=== PATIENT | male | born 1960 | race Caucasian/White ===

== ENCOUNTER 2018-09-26 18:26 | Observation (INO) ==
[2018-09-26] MEDS ORDERED: 0.9 % Sodium Chloride 1,000 ML IVC ONE (18:44)
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
[2018-09-26 19:13] LABS: Basophils # 0.1 K/mcL (0.0-0.2); Basophils % 0.7 %; Eosinophils # 0.4 K/mcL (0.0-0.6); Eosinophils % 5.5 %; Hematocrit 44.1 % (37.5-50.1); Hemoglobin 15.2 g/dL (12.9-16.9); Immature Granulocytes % 0.3 % (0-4); Lymphocytes # 2.2 K/mcL (0.6-4.6); Lymphocytes % 30.7 %; Mean Corpuscular HGB Conc 34.5 g/dL (31.6-35.5); Mean Corpuscular Hemoglobin 30.3 pg (28.0-33.3); Mean Corpuscular Volume 87.8 fL (83.0-100.0); Mean Platelet Volume 9.4 fL (9.4-12.4); Monocytes # 0.7 K/mcL (0.0-1.3); Monocytes % 9.8 %; Neutrophils # 3.9 K/mcL (1.6-8.9); Platelet Count 245 K/mcL (140-400); Red Blood Count 5.02 M/mcL (4.19-5.50); Red Cell Distribution Width 13.1 % (11.5-14.5)
[2018-09-26 19:34] LABS: BUN/Creatinine Ratio 21 (6-26); Blood Urea Nitrogen 19 mg/dL (6-20); Calcium 9.3 mg/dL (8.6-10.3); Carbon Dioxide 24 mEq/L (23-29); Chloride 107 mEq/L (98-107); Glucose 87 mg/dL (70-105); Osmolality,Calculated 292 (280-300); Potassium 3.9 mEq/L (3.5-5.1); Sodium 140 mEq/L (136-145); Troponin I < 0.03 ng/mL (< 0.04); eGFR For Non-African Americans > 60 (> 60)
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
[2018-09-26] MEDS ORDERED: Aspirin 325 MG TABLET PO ONE (19:40)
[2018-09-26 20:43] LABS: Bilirubin,Urine Negative (Negative); Blood,Urine Negative (Negative); Clarity,Urine Clear (Clear); Color,Urine Yellow (Yellow); Glucose,Urine (UA) Normal (Normal); Ketones,Urine Negative (Negative); Leukocyte Esterase,Urine Negative (Negative); Nitrite,Urine Negative (Negative); PH,Urine 6.5 pH Units (5.0-8.0); Protein,Urine Negative (Neg-Trace); Specific Gravity,Urine < 1.005 (1.010-1.025); Urobilinogen,Urine Normal (Normal)
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
[2018-09-27] MEDS: *HR* Heparin 5,000 UNIT/ML VIAL SQ SCH ×3 (05:03→21:36)
[2018-09-27 07:36] LABS: Prothrombin Time 11.4 Seconds (9.4-12.1)
[2018-09-27 07:49] LABS: Troponin I < 0.03 ng/mL (< 0.04)
[2018-09-27 07:54] LABS: Alanine Aminotransferase 29 Units/L (7-52); Albumin 3.8 g/dL (3.5-5.7); Albumin/Globulin Ratio 1.6 (1.1-2.2); Alkaline Phosphatase 51 Units/L (34-104); Aspartate Amino Transferase 19 Units/L (13-39); BUN/Creatinine Ratio 20 (6-26); Bilirubin,Total 0.8 mg/dL (0.3-1.0); Blood Urea Nitrogen 16 mg/dL (6-20); Calcium 8.9 mg/dL (8.6-10.3); Carbon Dioxide 24 mEq/L (23-29); Chloride 109 mEq/L (98-107); Chol/HDL Ratio 5.5 (0-4.9); Cholesterol 183 mg/dL (< 200); Globulin 2.4 g/dL (2.4-3.5); Glucose 87 mg/dL (70-105); HDL Cholesterol 33 mg/dL (40-59); LDL Cholesterol,Calculated 127 mg/dL (0-99); Osmolality,Calculated 289 (280-300); Potassium 3.9 mEq/L (3.5-5.1); Sodium 139 mEq/L (136-145); Total Protein 6.2 g/dL (6.4-8.9); Triglycerides 117 mg/dL (< 150); eGFR For Non-African Americans > 60 (> 60)
[2018-09-27 08:36] LABS: Estimated Average Glucose 111 mg/dl; Hemoglobin A1C 5.5 %
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
--- NOTE | 2018-09-27 13:55 | EEG/EMG/Oth Biometrics Report ---
EEG Procedure Report Date of procedure: 09/27/18 EEG Procedure: Routine EEG Procedure Note: This EEG was acquired with standard international 10-20 system with EKG recording. The background EEG activity was characterized by the presence of posterior dominant alpha rhythm with the best frequency up to 11 Hz. The background activity was reactive to eye openings. Sleep stages were characterized by the presence of background fragmentation, vertex waves, K complexes, and sleep spindles. There are no electrographic seizures identified during this tracing. There are no epileptiform discharges and focal slowing noted during this recording. Photic stimulation and hyperventilation produced no abnormalities. Hyperventilation efforts appeared adequate due to development of diffuse background slow during and immediately after HV challenge. EKG tracing showed no significant cardiac dysrhythmia. Impression: This is essentially a normal awake and asleep EEG. Clinical Correlation: Normal EEGs, however, do not exclude epilepsy. Clinical correlation is advised.
[2018-09-28] MEDS: *HR* Heparin 5,000 UNIT/ML VIAL SQ SCH ×3 (05:19→21:26)
[2018-09-28 07:14] LABS: BUN/Creatinine Ratio 21 (6-26); Blood Urea Nitrogen 17 mg/dL (6-20); Calcium 9.2 mg/dL (8.6-10.3); Carbon Dioxide 21 mEq/L (23-29); Chloride 109 mEq/L (98-107); Glucose 89 mg/dL (70-105); Osmolality,Calculated 287 (280-300); Potassium 4.1 mEq/L (3.5-5.1); Sodium 138 mEq/L (136-145); eGFR For Non-African Americans > 60 (> 60)
--- NOTE | 2018-09-28 09:47 | Cardiology Progress Note ---
<James Gaytan - Last Filed: 09/28/18 11:09> Date of Encounter: 09/28/18 Time of Encounter: 09:00 Assessment and Plan (1) Syncope Current Visit: Yes Status: Acute -Syncopal episode while driving followed by disorientation and LE weakness -Recurring episdoes of L temporal numbness, dizziness, and bilat LE "rubber" feeling that occur with driving but do not progress to syncope -No murmurs on exam consistent with valvular disease -No arrhythmias, pauses, heart block noted on tele so far -No documented episodes of bradycardia or hypotension since arrival -Troponin x2 neg -CT head neg -MRI brain without acute abnormality -EEG wnl -Prelim carotid doppler wnl -No further symptoms today -TTE 09/27/18 EF 60-65%, mild LV diastolic dysfunction, mild tr, no evidence pfo or ph. No evidence of significant -Neuro on board to evaluate syncope for possible neuro origin -Will get exercise nuclear stress tomorrow Qualifiers: Syncope type: unspecified Qualified Code(s): R55 - Syncope and collapse Discussion w patient/family: The assessment and plan as outlined above was discussed with the patient and/or family members who expressed understanding and agreement. All questions were answered. Thank you for involving us in the care of your patient. Please call with any questions. Subjective Principal diagnosis: Syncope Interval history: No acute events overnight. No arrhythmia's noted on tele overnight. No further episodes of dizziness/lightheadedness or syncope. Had occasional dyspnea yesterday but denies diplopia, blurry vision, chest pain, back pain, diaphoresis. Objective Vital Signs, Last 4 Hours Temp Pulse Resp BP Pulse Ox 09/28/18 08:22 97.9 F 60 17 141/90 97 General: Conversant, No Apparent Distress HEENT: Atraumatic, Normocephaly Neck: No JVD Cardiac: Reg Rate and Rhythm, Normal S1 and S2, No Murmur Lungs: Normal Breath Sounds, No Wheeze, Rales, Rhonchi Neuro: Alert and responsive, No focal deficits noted Musculoskeletal: No Chest Wall Tenderness Extremities: No Clubbing, No Cyanosis, No Edema, Normal Pulses Results 09/26/18 18:44 09/28/18 05:26 Lab Results 09/27/18 09/28/18 11:23 05:26 D-Dimer 433 Sodium 138 Potassium 4.1 Chloride 109 H Carbon Dioxide 21 L BUN 17 Creatinine 0.81 Glucose 89 Calcium 9.2 Consult Discharge Plan - Plan Referrals: NONE,PCP [Primary Care Provider] - <Felix Webster A - Last Filed: 09/28/18 16:29> Date of Encounter: 09/28/18 Assessment and Plan Discussion w patient/family: The assessment and plan as outlined above was discussed with the patient and/or family members who expressed understanding and agreement. All questions were a nswered. Thank you for involving us in the care of your patient. Please call with any questions. Results 09/26/18 18:44 09/28/18 05:26 Lab Results 09/28/18 05:26 Sodium 138 Potassium 4.1 Chloride 109 H Carbon Dioxide 21 L BUN 17 Creatinine 0.81 Glucose 89 Calcium 9.2 - Attending Attestation I have personally performed a face to face evaluation on this patient. I have reviewed and agree with the documented findings and care plan as documented by the resident. History and Exam by me shows: Workup of syncope so far has not yielded positive finding. In light of neurological findings on presentation and severely elevated blood pressure, altered sensorium may have been due to possible hypertensive encephalopathy. Given of risk factors for coronary artery disease, we will do exercise nuclear stress test tomorrow. Urged to quit smoking. Thanks, Felix Webster MD [facility]
--- NOTE | 2018-09-28 11:18 | Internal Med Progress Note ---
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 He was admitted to the ED for a syncopal episode while driving. He describes near syncopal episodes as happening 3-4x in the last few months, but this episode was more concerning than the others due to it being a full syncopal episode. He described a headache, weakness, some vision changes after the episode yesterday. He describes these episodes only occurring while driving or riding in a wheel chair. He also d escribes left sided facial numbness for the last 2 months. He also describes intermittent SOB after his syncope episode yesterday. He is a current smoker and smokes 1 pack every 1.5 days. Today the patient was seen, he was sitting in his bedside chair. Today he states he is feeling well, he does describe some intermittent SOB while sitting in his chair, but denies any chest pain, or diaphoresis. He still describes some intermittent numbness over his left infratemporal fossa. He denies any nausea, vomiting, diarrhea, fever, or chills. - Exam Vitals: Temp Pulse Resp BP Pulse Ox 97.9 F 60 17 141/90 97 09/28/18 08:22 09/28/18 08:22 09/28/18 08:22 09/28/18 08:22 09/28/18 08:22 Exam: General: Alert and oriented 3 lying in bed in no acute distress Skin:Normal color, no rash, no lesions. HEENT:EOM, pupils equal, round and reactive. Neck: No thyromegaly, no carotid bruits Cardiovascular:Normal S1 & S2, no rubs, murmurs or gallops. No JVD. Pulse regular. Lungs:Normal breath sounds, no wheezes or crackles. Abdomen:Soft, non-tender, no rigidity, BSx4, no hepatomegaly, no splenomegaly. Extremities:No deformity, no edema or tenderness, no joint swelling or clubbing. Neurological: Cranial nerves II-XII intact. No evidence of pronator drift. Decreased sensation described on the left infratemporal fossa, otherwise facial sensation intact. Muscle strength 5/5 in the upper and lower extremities. Patellar, Achilles, and triceps reflexes +2/4. Pulses:Carotid and radial pulses normal +2. Normal capillary refill - Assessment and Plan (1) Syncope Current Visit: Yes Status: Acute Assessment and Plan: - Patient w/ Significant smoking history presents with syncopal episode preceded by a flushing sensation traveling up from his chest to his head. - Is not reporting any chest pain, or SOB currently and has not reported any similar episodes upon admission - Troponin at 09/26 (18:44) and 09/27 (5:39) were both negative. EKG and CT head unremarkable. - D-Dimer was negative at 433, making a Pulmonary Embolism as the source of the syncope unlikely. - Brain MRI w/o constrast showed no acute intracranial abnormality - EEG showed no abnormalities - MRI showed no acute abnormalities - Carotid duplex prelimary results show carotid flow within normal limitis - Echocardiogram revealed normal EF and no cardiac wall abnormalities - Continue patient on telemetry - Cardiology has been consulted and has seen the patient - Nuclear stress test ordered for 09/29/18 - Neurology has been consulted and has seen the patient - Start on atorvastatin 20mg, due to ASCVD risk of 16.4% (2) Facial numbness Current Visit: Yes Status: Acute Assessment and Plan: - Patient describes numbness in the area around the infratemporal fossa. - Patient did receive loading dose of aspirin in the ED. - Hx of Parr's palsy. - Carotid duplex prelimary results show carotid flow within normal limitis - Brain MRI shows no evidence of acute ischemia - Echocardiogram revealed no abnormalities -Serial neurologic checks -Allow for permissive hypertension - Nuclear stress test has been ordered by cardiology - Neurology has been consulted and has seen the patient - Cardiology has been consulted and has seen the patient (3) Cognitive changes Current Visit: Yes Status: Acute Assessment and Plan: Pt's states that she has noticed the patient takes longer to respond when asked questions - On 09/27/18 Pt. displays slight decrease in cognitive tasks such as simple mathematical calculations and memory deficits such as recalling names of family members. - No noticeable changes in cognitive status today - MRI shows no acute findings indicative of ischemia - EEG shows no evidence of seizure disorder - Neurology has been consulted for further workup (4) DVT prophylaxis Current Visit: Yes Status: Acute Assessment and Plan: SQ Heparin Ordered, pt ambulating frequently (5) Leg weakness Current Visit: Yes Status: Acute DVT Prophylaxis: SQ Heparin Ordered, pt ambulating frequently - Time Spent with Patient Total time spent is greater than 50% in coordination of care (as documented) at patient's floor/unit and/or counseling patient: Internal Medicine: Result - Labs CBC & Chem 7: 09/26/18 18:44 09/28/18 05:26 Labs: BMP 09/28/18 05:26 Sodium 138 Potassium 4.1 Chloride 109 H Carbon Dioxide 21 L BUN 17 Creatinine 0.81 Glucose 89 Calcium 9.2 - ABG Interpretation ABG results: PT/INR, D-dimer PT 11.4 Seconds (9.4-12.1) 09/27/18 05:39 D-Dimer 433 ng/mLFEU (0-500) 09/27/18 11:23 - Impressions Impressions Echocardiogram 09/26/18 22:35 Impressions: LVEF 60-65%. Normal LV chamber size, wall thickness and function. Mild left ventricular diastolic dysfunction. Normal right ventricular structure and function. No evidence of a PFO with agitated saline contrast. Mild tricuspid regurgitation. No pulmonary hypertension. Left Ventricular Wall Motion: Rest Echo Findings All wall segments showed normal motion. Findings: Study Quality * Technically adequate exam. ECG Findings * Normal sinus rhythm. Left Ventricle * LVEF 60-65%. * Normal LV chamber size, wall thickness and function. * Mild left ventricular diastolic dysfunction. Right Ventricle * Normal right ventricular structure and function. Left Atrium * Mild to moderately dilated left atrium. Right Atrium * Mildly dilated right atrium. Interatrial Septum * No evidence of a PFO with agitated saline contrast. Aortic Valve * Mildly thickened aortic valve leaflets. Difficult to determine the number of leaflets. A bicuspid AV cannot be excluded. * Trace aortic regurgitation. * No aortic stenosis. Mitral Valve * Normal mitral valve structure and function. * No mitral stenosis. * Trace mitral regurgitation. Tricuspid Valve * Normal tricuspid valve structure. * Mild tricuspid regurgitation. * No pulmonary hypertension. * Estimated RVSP is 35 mmHg. * Estimated RA pressure is 5 mmHg. Pulmonic Valve * Normal pulmonic valve structure and function. * No pulmonic regurgitation. Aorta * Normally sized aortic root. Pericardium * The pericardium appears normal. IVC * Normal IVC dimensions and inspiratory collapse. Pulmonary Artery * Normal visualized portions of the main pulmonary artery. Brain MRI 09/27/18 22:33 IMPRESSION: No acute intracranial abnormality. D/ / Lorenzo Fisher MD / Lorenzo Fisher MD Interpreting Provider: Lorenzo Fisher MD Consult Discharge Plan - Plan Referrals: NONE,PCP [Primary Care Provider] - <Dee Baptiste - Last Filed: 09/28/18 15:40> Hospitalist Progress Note - Encounter Date of Encounter: 09/28/18 - Exam Vitals: Temp Pulse Resp BP Pulse Ox 97.8 F 59 19 138/80 97 09/28/18 11:36 09/28/18 11:36 09/28/18 11:36 09/28/18 11:36 09/28/18 11:36 - Assessment and Plan (1) Facial numbness Current Visit: Yes Status: Acute (2) Syncope Current Visit: Yes Status: Acute (3) Leg weakness Current Visit: Yes Status: Acute (4) DVT prophylaxis Current Visit: Yes Status: Acute - Time Spent with Patient Total time spent is greater than 50% in coordination of care (as documented) at patient's floor/unit and/or counseling patient: Internal Medicine: Result - Labs CBC & Chem 7: 09/26/18 18:44 09/28/18 05:26 Labs: BMP 09/28/18 05:26 Sodium 138 Potassium 4.1 Chloride 109 H Carbon Dioxide 21 L BUN 17 Creatinine 0.81 Glucose 89 Calcium 9.2 - ABG Interpretation ABG results: PT/INR, D-dimer PT 11.4 Seconds (9.4-12.1) 09/27/18 05:39 D-Dimer 433 ng/mLFEU (0-500) 09/27/18 11:23 - Impressions Impressions Echocardiogram 09/26/18 22:35 Impressions: LVEF 60-65%. Normal LV chamber size, wall thickness and function. Mild left ventricular diastolic dysfunction. Normal right ventricular structure and function. No evidence of a PFO with agitated saline contrast. Mild tricuspid regurgitation. No pulmonary hypertension. Left Ventricular Wall Motion: Rest Echo Findings All wall segments showed normal motion. Findings: Study Quality * Technically adequate exam. ECG Findings * Normal sinus rhythm. Left Ventricle * LVEF 60-65%. * Normal LV chamber size, wall thickness and function. * Mild left ventricular diastolic dysfunction. Right Ventricle * Normal right ventricular structure and function. Left Atrium * Mild to moderately dilated left atrium. Right Atrium * Mildly dilated right atrium. Interatrial Septum * No evidence of a PFO with agitated saline contrast. Aortic Valve * Mildly thickened aortic valve leaflets. Difficult to determine the number of leaflets. A bicuspid AV cannot be excluded. * Trace aortic regurgitation. * No aortic stenosis. Mitral Valve * Normal mitral valve structure and function. * No mitral stenosis. * Trace mitral regurgitation. Tricuspid Valve * Normal tricuspid valve structure. * Mild tricuspid regurgitation. * No pulmonary hypertension. * Estimated RVSP is 35 mmHg. * Estimated RA pressure is 5 mmHg. Pulmonic Valve * Normal pulmonic valve structure and function. * No pulmonic regurgitation. Aorta * Normally sized aortic root. Pericardium * The pericardium appears normal. IVC * Normal IVC dimensions and inspiratory collapse. Pulmonary Artery * Normal visualized portions of the main pulmonary artery. - Attending Attestation The history, physical exam, and medical decision making was performed by medical student Vianney either while I was physically present and actively involved or I personally re-performed the exam and medical decision making. I have verified the accuracy of the medical student's documentation with regards to the history, physical exam findings, and medical decision making. Mr Fierro is being observed for syncope episode and facial numbness with neuro work up negative and cardiac work up negative thus far with stress test pending Awake, pleasant, no presyncope, denies cp, palpitations and denies sob to me on my encounter. No weakness. gen- alert, awake,appears stated age eyes- pupils equal round cv- reg rate and rhythm, normal s1,s2, no murmurs appreciated, no le edema lungs- ctabl, no wheezing, rhonchi or crackles, norm resp effort on ra neuro- AAOx3, CN grossly intact, no focal deficits Syncopal episode- neuro work up negative, stress test in am, cards work up thus far negative Left facial numbness with hx [place] Palsy - MRI and other neuro work up negative, neuro following, unlikely related to presenting syncope, may be related to BP and will cont to monitor HLD- begin statin Elevated BP on admission, now normotensive with occassional bp 140s/80s-90- will cont to monitor, fu with pcp outpt pt would like ot establish care with an [facility] PCP upon dc <Marquis Faith - Last Filed: 09/28/18 11:12> (1) Syncope Qualifiers: Syncope type: unspecified Qualified Code(s): R55 - Syncope and collapse (5) Leg weakness Qualifiers: Laterality: unspecified laterality Qualified Code(s): R29.898 - Other symptoms and signs involving the musculoskeletal system <Dee Baptiste M - Last Filed: 09/28/18 15:40> (2) Syncope Qualifiers: Syncope type: unspecified Qualified Code(s): R55 - Syncope and collapse (3) Leg weakness Qualifiers: Laterality: unspecified laterality Qualified Code(s): R29.898 - Other symptoms and signs involving the musculoskeletal system
--- NOTE | 2018-09-28 15:58 | Neurology Progress Note ---
Date of Encounter: 09/28/18 Time of Encounter: 11:00 Assessment and Plan (1) Syncope Current Visit: Yes Status: Acute Etiology unclear. Unlikely secondary to neurological disorder. Patient has non- focal neurological examination. No recurrent symptoms since admission. No further testing recommended. Please continue medical and supportive care. Will sign off at this time, please call if any questions Qualifiers: Syncope type: unspecified Qualified Code(s): R55 - Syncope and collapse Subjective Principal diagnosis: Syncope Interval history: Patient seen and examined. He is doing well and reports no significant neurological discomforts. No similar numbness, or hot flash feeling since admission. MRI of brain and EEG completed and showed unremarkable studies. Is still waiting for carotid artery duplex study result. Objective - Constitutional Vitals: Temp Pulse Resp BP Pulse Ox 97.8 F 59 19 138/80 97 09/28/18 11:36 09/28/18 11:36 09/28/18 11:36 09/28/18 11:36 09/28/18 11:36 - Neurological Exam Sensorimotor examination: Present: intact Motor Examination: Present: grossly full strength in all extremities Motor examination - right side: 5/5: deltoids, biceps, triceps, wrist flexion, wrist extension, panelboard tank pumper, hip flexors, tibialis Anterior, quadriceps, toe extension (EHL), plantarflexion Motor examination - left side: 5/5: deltoids, biceps, triceps, wrist flexion, wrist extension, panelboard tank pumper, toe extension (EHL), plantarflexion Sensation intact: Present: intact Posture: Present: other (None) Reflex and gait examination: intact Reflexes: Biceps: 2+, Triceps: 2+, Brachioradialis: 2+, Patella: 2+, Achilles: 2+ Mental Status Examination: Present: awake, alert, oriented to person, oriented to place, oriented to time, follows commands appropriately, answers questions appropriately Cranial nerve examination: Present: PERRL, EOMI, visual belcher intact Cerebellar examination: Present: no gait ataxia Results - Laboratory Findings CBC and BMP: 09/26/18 18:44 09/28/18 05:26 Abnormal lab findings: Abnormal lab results Chloride 109 mEq/L (98-107) H 09/28/18 05:26 Carbon Dioxide 21 mEq/L (23-29) L 09/28/18 05:26 Serum Total Protein 6.2 g/dL (6.4-8.9) L 09/27/18 05:39 LDL Cholesterol, Calc 127 mg/dL (0-99) H 09/27/18 05:39 HDL Cholesterol 33 mg/dL (40-59) L 09/27/18 05:39 Cholesterol/HDL Ratio 5.5 (0-4.9) H 09/27/18 05:39 Ur Specific [place] < 1.005 (1.010-1.025) L 09/26/18 20:15 - Diagnostic Findings Additional findings: EV/EV echo with saline Impressions: LVEF 60-65%. Normal LV chamber size, wall thickness and function. Mild left ventricular diastolic dysfunction. Normal right ventricular structure and function. No evidence of a PFO with agitated saline contrast. Mild tricuspid regurgitation. No pulmonary hypertension. Left Ventricular Wall Motion: Rest Echo Findings All wall segments showed normal motion. Findings: Study Quality * Technically adequate exam. ECG Findings * Normal sinus rhythm. Left Ventricle * LVEF 60-65%. * Normal LV chamber size, wall thickness and function. * Mild left ventricular diastolic dysfunction. Right Ventricle * Normal right ventricular structure and function. Left Atrium * Mild to moderately dilated left atrium. Right Atrium * Mildly dilated right atrium. Interatrial Septum * No evidence of a PFO with agitated saline contrast. Aortic Valve * Mildly thickened aortic valve leaflets. Difficult to determine the number of leaflets. A bicuspid AV cannot be excluded. * Trace aortic regurgitation. * No aortic stenosis. Mitral Valve * Normal mitral valve structure and function. * No mitral stenosis. * Trace mitral regurgitation. Tricuspid Valve * Normal tricuspid valve structure. * Mild tricuspid regurgitation. * No pulmonary hypertension. * Estimated RVSP is 35 mmHg. * Estimated RA pressure is 5 mmHg. Pulmonic Valve * Normal pulmonic valve structure and function. * No pulmonic regurgitation. Aorta * Normally sized aortic root. Pericardium * The pericardium appears normal. IVC * Normal IVC dimensions and inspiratory collapse. Pulmonary Artery * Normal visualized portions of the main pulmonary artery. Consult Discharge Plan - Plan Referrals: NONE,PCP [Primary Care Provider] -
[2018-09-29] MEDS: *HR* Heparin 5,000 UNIT/ML VIAL SQ SCH ×2 (05:22→14:18)
[2018-09-29 06:24] LABS: Basophils # 0.1 K/mcL (0.0-0.2); Basophils % 0.7 %; Eosinophils # 0.3 K/mcL (0.0-0.6); Eosinophils % 3.5 %; Hematocrit 46.2 % (37.5-50.1); Hemoglobin 15.9 g/dL (12.9-16.9); Immature Granulocytes % 0.3 % (0-4); Lymphocytes # 2.1 K/mcL (0.6-4.6); Lymphocytes % 26.7 %; Mean Corpuscular HGB Conc 34.4 g/dL (31.6-35.5); Mean Corpuscular Hemoglobin 30.5 pg (28.0-33.3); Mean Corpuscular Volume 88.7 fL (83.0-100.0); Mean Platelet Volume 9.7 fL (9.4-12.4); Monocytes # 0.7 K/mcL (0.0-1.3); Monocytes % 8.5 %; Neutrophils # 4.7 K/mcL (1.6-8.9); Platelet Count 263 K/mcL (140-400); Red Blood Count 5.21 M/mcL (4.19-5.50); Red Cell Distribution Width 13.1 % (11.5-14.5); Segmented Neutrophils % 60.3 %
[2018-09-29 07:22] LABS: BUN/Creatinine Ratio 20 (6-26); Blood Urea Nitrogen 18 mg/dL (6-20); Calcium 9.3 mg/dL (8.6-10.3); Carbon Dioxide 24 mEq/L (23-29); Chloride 107 mEq/L (98-107); Glucose 87 mg/dL (70-105); Osmolality,Calculated 289 (280-300); Sodium 139 mEq/L (136-145); eGFR For Non-African Americans > 60 (> 60)
--- NOTE | 2018-09-29 11:51 | Cardiology Progress Note ---
<James Gaytan - Last Filed: 09/29/18 13:55> Date of Encounter: 09/29/18 Time of Encounter: 10:30 Assessment and Plan (1) Syncope Current Visit: Yes Status: Acute -Syncopal episode while driving followed by disorientation and LE weakness -Recurring episodes of L temporal numbness, dizziness, and bilat LE "rubber" feeling that occur with driving but do not progress to syncope -No murmurs on exam consistent with valvular disease -No arrhythmias, pauses, heart block noted on tele so far -No documented episodes of bradycardia or hypotension since arrival -Troponin x2 neg -CT head neg -MRI brain without acute abnormality -EEG wnl -Prelim carotid doppler wnl -No further symptoms today -TTE 09/27/18 EF 60-65%, mild LV diastolic dysfunction, mild tr, no evidence pfo or ph. No evidence of significant -Neuro evaluated and signed off -Nuclear stress neg for ischemia or infarct -Etiology unclear as all testing thus far within normal limits, possibly 2/2 hypertensive encephalopathy as BP elevated at arrival with additional neuro symptoms -Cardiology will sign off at this point as no evidence of cardiogenic origin and will followup in cardiology clinic in 2-3 weeks Qualifiers: Syncope type: unspecified Qualified Code(s): R55 - Syncope and collapse (2) Hypertension Current Visit: Yes Status: Acute -BP 180/101 on arrival -BP 143/84 most recently -Will start 5mg lisinopril Qualifiers: Hypertension type: essential hypertension Qualified Code(s): I10 - Essential (primary) hypertension Discussion w patient/family: The assessment and plan as outlined above was discussed with the patient and/or family members who expressed understanding and agreement. All questions were answered. Thank you for involving us in the care of your patient. Please call with any questions. Subjective Principal diagnosis: Syncope Interval history: No acute events overnight. No arrhythmia's noted on tele overnight. No further episodes of dizziness/lightheadedness or syncope. Denies diplopia, blurry vision, chest pain, dyspnea, back pain, diaphoresis. No symptoms during stress test today. Objective General: Conversant, No Apparent Distress HEENT: Atraumatic, Normocephaly, Mucus Membranes Moist Cardiac: Reg Rate and Rhythm, Normal S1 and S2, No Murmur Lungs: Normal Breath Sounds, No Wheeze, Rales, Rhonchi Neuro: Alert and responsive Extremities: No Clubbing, No Cyanosis, No Edema, Normal Pulses Results 09/29/18 05:12 09/29/18 05:12 Lab Results 09/29/18 09/29/18 05:12 05:12 WBC 7.7 Hgb 15.9 Hct 46.2 Plt Count 263 Sodium 139 Potassium 4.0 Chloride 107 Carbon Dioxide 24 BUN 18 Creatinine 0.89 Glucose 87 Calcium 9.3 Consult Discharge Plan - Plan Referrals: NONE,PCP [Primary Care Provider] - (call [phone] to find a new PCP.) <Felix Webster A - Last Filed: 09/29/18 14:29> Date of Encounter: 09/29/18 Assessment and Plan Discussion w patient/family: The assessment and plan as outlined above was discussed with the patient and/or family members who expressed understanding and agreement. All questions were answered. Thank you for involving us in the care of your patient. Please call with any questions. Objective Vital Signs, Last 4 Hours Temp Pulse Resp BP Pulse Ox 09/29/18 12:15 97.5 F L 66 17 143/84 98 Results 09/29/18 05:12 09/29/18 05:12 Lab Results 09/29/18 09/29/18 05:12 05:12 WBC 7.7 Hgb 15.9 Hct 46.2 Plt Count 263 Sodium 139 Potassium 4.0 Chloride 107 Carbon Dioxide 24 BUN 18 Creatinine 0.89 Glucose 87 Calcium 9.3 - Attending Attestation I have personally performed a face to face evaluation on this patient. I have reviewed and agree with the documented findings and care plan as documented by the resident. History and Exam by me shows: 57-year-old male with uncontrolled hypertension admitted for suspected hypertensive encephalopathy. Blood pressure is currently better controlled. Echo and stress test negative for acute pathology Impression/plan: Agree with lisinopril 5 mg daily for hypertension, lifestyle modification. Follow-up in the office ThanksFelix MD [facility]
--- NOTE | 2018-09-29 14:04 | Discharge Summary ---
<Dee Baptiste - Last Filed: 09/29/18 15:49> Orders not resulted at time of discharge: Pending orders 09/29/18 07:00 NM rosario perf SPECT multi [NM] Routine Date of Encounter: 09/29/18 - Discharge Diagnosis (1) Facial numbness Status: Acute (2) Syncope Status: Acute Qualifiers: Syncope type: unspecified Qualified Code(s): R55 - Syncope and collapse (3) Leg weakness Status: Acute Qualifiers: Laterality: unspecified laterality Qualified Code(s): R29.898 - Other symptoms and signs involving the musculoskeletal system (4) DVT prophylaxis Status: Acute Hospital course: Mr. Fierro is a 57 year old male - Time Spent with Patient Total time spent providing and/or coordinating discharge services: - Discharge Medications Prescriptions: Atorvastatin [Lipitor] 20 mg PO HS 30 Days #30 tablet Lisinopril [Zestril] 5 mg PO DAILY 30 Days #30 tablet Nicotine Patch [Nicoderm] 14 mg TD DAILY 30 Days #30 patch.td24 Home Medications: Omeprazole [PriLOSEC] 20 mg PO DAILY 09/26/18 [History] Atorvastatin [Lipitor] 20 mg PO HS 30 Days #30 tablet 09/29/18 [Rx] Lisinopril [Zestril] 5 mg PO DAILY 30 Days #30 tablet 09/29/18 [Rx] Nicotine Patch [Nicoderm] 14 mg TD DAILY 30 Days #30 patch.td24 09/29/18 [Rx] Allergies/Adverse Reactions: Allergy/AdvReac Type Severity Reaction Status Date / Time No Known Allergies Allergy Verified 11/25/15 15:21 Date of admission: 09/26/18 21:34 Primary care physician: PCP NONE Consults: 09/27/18 03:20 Consult to Cardiology [CONS] Routine Comment: Consulting Provider: [facility] Reason for Consult: Syncopal episode. Significant smoking history. Call Completed: No 09/27/18 10:50 Consult to Neurology [CONS] Routine Consulting Provider: [facility] Reason for Consult: syncopal episode yesterday and previous presyncopal episodes in the past three months. Freqent episodes of slower cognitive response with "blank stares" per Time Notified: 11:00 Call Completed: Yes 09/27/18 13:24 Consult to Interpret Exam [CONS] Routine Consulting Provider: Alvina Sullivan Consult to Interpret Exam: Interpret EEG - Constitutional Vitals: Temp Pulse Resp BP Pulse Ox 97.4 F L 75 16 152/95 99 09/29/18 15:37 09/29/18 15:37 09/29/18 15:37 09/29/18 15:37 09/29/18 15:37 - Patient Status Disposition: Home, Self-Care Condition: Good Overall status at discharge: patient is back to baseline - Discharge Instructions Follow Up With: NONE,PCP [Primary Care Provider] - (call [phone] to find a new PCP.) Felix Webster MD [Non-Partnered Physician] - (he would like to see in 2-3 weeks) - Attending Attestation I examined this patient and my medical decision-making was reviewed with the Resident Physician Dr Kennedy. I agree with the documented findings, disposition and treatment plan as described except to the extent set forth below. Mr Fierro is being observed for syncope episode and facial numbness with neuro work up negative and cardiac work up negative Awake, pleasant, no presyncope, syncope, cp, palpitations or sob. no facial numbness or numbness elsewhere gen- alert, awake,appears stated age cv- reg rate and rhythm, normal s1,s2, no murmurs appreciated, no le edema lungs- ctabl, no wheezing, rhonchi or crackles, norm resp effort on ra neuro- AAOx3, CN grossly intact, no focal deficits Syncopal episode- neuro work up negative, cards work up negative, extensive work up without identifiable cause, no driving, fu with a pcp and cards, to be cleared for driving outpt Left facial numbness with hx [place] Palsy - MRI and other neuro work up negative, neuro followed, unlikely related to presenting syncope, neurology signed off with no further interventions/treatment recommended HLD- cont statin on dc Elevated BP on admission, bp 140s/80s-90- started on lisinopril and cards will fu outpt in 2-3 weeks pt offered resident mandia and declined, will find his own outpt pcp and appt request sent for cards follow up further diagnoses and plan as noted by resident <Deepika Kennedy - Last Filed: 09/29/18 15:58> - NOTES TO OUTPATIENT PROVIDER Notes to Outpatient Provider: Mr. Fierro presented to the ED after a syncopal episode. The ED cardiology and neurology for consultation. He underwent CT of the head as well as MRI of the brain neither of them showed any acute abnormalities. He also underwent an EEG which did not show any seizure-like activity. Cardiology ordered an echo which showed a normal EF with mild left ventricular diastolic dysfunction he also underwent a nuclear stress test which did not show any infarct or ischemic activities. He is to follow up outpatient with cardiology in 2 weeks. He should continue his atorvastatin and lisinopril. Is advised against driving until his PCP deems him to be safe. Orders not resulted at time of discharge: Pending orders 09/29/18 07:00 NM rosario perf SPECT multi [NM] Routine Date of Encounter: 09/29/18 Time of Encounter: 08:15 - Discharge Diagnosis (1) Syncope Priority: Primary Status: Acute Qualifiers: Syncope type: unspecified Qualified Code(s): R55 - Syncope and collapse (2) Facial numbness Priority: Secondary Status: Acute (3) Leg weakness Priority: Secondary Status: Acute Qualifiers: Laterality: unspecified laterality Qualified Code(s): R29.898 - Other symptoms and signs involving the musculoskeletal system (4) DVT prophylaxis Priority: Secondary Status: Acute Hospital course: Mr. Fierro is a 57-year-old male with past medical history of acid reflux who presented to the ED complaining of recent syncopal episode as he was driving. He noted he had 5 recent syncopal episodes but this was the first syncopal episode he had encountered. Neurology and cardiology were consultative. The ED he had a CT of the head which showed no acute findings. He then underwent brain MRI which also did not show any evidence of intracranial hemorrhage or any acute intracranial abnormalities. He also underwent echocardiogram which showed a normal ejection fraction of 60-65% with mild left ventricular diastolic function and mild tricuspid regurgitation and no other abnormalities were noted. He also underwent nuclear stress test this morning which showed no ischemia or infarct. Neurology also ordered an EEG which did not show any seizure-like activities. He has been recommended to continue atorvastatin and lisinopril by cardiology. He also be discharged with nicotine patches. He is also urged to keep a track of his blood pressure as upon admission his blood pressure was elevated but during his stay here his blood pressure has stayed within normal limits. Because of his recent syncopal episode while driving he is advised against driving until he follows with his PCP and PCP deems him safe to be on the road. He has a follow-up appointment with cardiology outpatient. - Time Spent with Patient Total time spent providing and/or coordinating discharge services: Date of admission: 09/26/18 21:34 Primary care physician: PCP NONE Consults: 09/27/18 03:20 Consult to Cardiology [CONS] Routine Comment: Consulting Provider: [facility] Reason for Consult: Syncopal episode. Significant smoking history. Call Completed: No 09/27/18 10:50 Consult to Neurology [CONS] Routine Consulting Provider: [facility] Reason for Consult: syncopal episode yesterday and previous presyncopal episodes in the past three months. Freqent episodes of slower cognitive response with "blank stares" per Time Notified: 11:00 Call Completed: Yes 09/27/18 13:24 Consult to Interpret Exam [CONS] Routine Consulting Provider: Alvina Sullivan Consult to Interpret Exam: Interpret EEG Discharging clinician: Deepika Kennedy Anticipated date of discharge: 09/29/18 - Constitutional Vitals: Temp Pulse Resp BP Pulse Ox 97.5 F L 66 17 143/84 98 09/29/18 12:15 09/29/18 12:15 09/29/18 12:15 09/29/18 12:15 09/29/18 12:15 General appearance: Present: A&O X 3, no acute distress Exam: General: Alert and oriented 3 lying in bed in no acute distress Skin:Normal color, no rash, no lesions. HEENT:EOM, pupils equal, round and reactive. Neck: No thyromegaly, no carotid bruits Cardiovascular:Normal S1 & S2, no rubs, murmurs or gallops. No JVD. Pulse regular. Lungs:Normal breath sounds, no wheezes or crackles. Abdomen:Soft, non-tender, no rigidity, BSx4, no hepatomegaly, no splenomegaly. Extremities: No pedal edema or tenderness, no joint swelling or clubbing. Neurological: Cranial nerves II-XII intact, sensation intact. Muscle strength 5/5 in the upper and lower extremities. Patellar, Achilles, and triceps reflexes +2/4. Pulses:Carotid and radial pulses +2. Normal capillary refill - Head Head exam: Present: atraumatic, normocephalic - Eye Eye exam: Present: EOMI, sclera anicteric - ENT ENT exam: Present: mucous membranes moist - Neck Neck exam general surgery: Present: full ROM, trachea midline - Respiratory Respiratory exam: Present: CTAB. Absent: rhonchi, stridor, wheezes - Cardiovascular Cardiovascular exam: Present: RRR, +S1, +S2 - GI/Abdominal GI/Abdominal exam: Present: normal bowel sounds, soft. Absent: distended, firm, rigid - Extremities Exam Extremities exam: Present: warm. Absent: pedal edema, tenderness - Neurological Exam Neurological exam: Present: alert, CN II-XII intact, oriented X3, no focal deficits - Psychiatric Psychiatric exam: Present: normal affect, normal mood - Skin Skin exam: Present: intact, warm. Absent: rash - Patient Status Overall status at discharge: patient is progressing back to baseline - Diet and Activity Activity: increase activity as tolerated Diet: low fat, low cholesterol
[2018-09-29 15:38] VITALS: BP 152/95
--- NOTE | 2018-09-29 17:16 | Electrocardiograph Report ---
[place] [address] Test Date: 2018-09-26 Pat Name: Mark Fierro Department: EXAMC8 Room: 3B41 Gender: M Living Supervisor: : 1960 Requested By: Armin Hirsch Order Number: [id number] Reading MD: Karis Love Measurements Intervals [place] Rate: 74 P: 42 MT: 48 QRS: 45 QRSD: 109 T: 31 QT: 383 QTc: 425 Interpretive Statements Sinus rhythm Short MT interval Right atrial enlargement Abnormal R-wave progression, early transition Artifact in lead(s) I II III aVR aVL V1 Electronically Signed On 09-29-2018 17:14:55 EST by Karis Love
== END 2018-09-29 16:32 | disposition home or self-care (01) ==
LOC: 3BNU 18:26 → EMEROOARM 18:26 → SUATTDRO 21:34 → 3BNU 22:12
PROVIDERS: ADMIT Internal Medicine; ATTEND Internal Medicine